=== PATIENT | female | born 1955 | race American Indian/Alaskan Native ===

== ENCOUNTER 2019-04-21 04:19 | Observation (INO) | payer MEDICAID ==
[2019-04-21] MEDS ORDERED: DUONEB *Not for PRN Use IH ONE ×2 (04:24→04:33)
[2019-04-21] MEDS ORDERED: XYLOCAINE 1% MPF 5 mL INFILTRATI ONE (06:53)
[2019-04-21] MEDS ORDERED: ROCEPHIN IM ONE (06:53)
[2019-04-21] MEDS ORDERED: SOLU-Medrol IM ONE (06:53)
--- NOTE | 2019-04-21 06:54 | Emergency Department Report ---
ED Shortness of Breath HPI - General Chief Complaint: Dyspnea/Respdistress Stated Complaint: BAKARI Time Seen by Provider: 04/21/19 06:48 Source: patient Mode of arrival: Ambulatory Limitations: No Limitations - History of Present Illness Initial Comments: Patient is a 63-year-old female that presents emergency room with asthmatic symptoms. She states her symptoms started 4 hours prior to arrival. Patient states she ran out of her inhalers and nebulizers. Patient states her symptoms improved with the respiratory treatment she received. Patient states her symptoms are worse with exertion. Patient denies fever. Patient denies chills. Patient given his cough and wheezing. Patient also complaining of bilateral rib pain. Patient states her rib pain is better with rest and worse with deep breath and coughing. MD Complaint: shortness of breath, cough, "asthma attack" -: Sudden Severity: severe Pain Scale: 10 Quality: aching Consistency: constant Improves With: rest, bronchodilators Worsens With: exertion Known History Of: asthma Context: recent URI, medication noncompliance Associated Symptoms: chest pain, cough, sputum production Treatments Prior to Arrival: none - Related Data Home Medications Medication Instructions Recorded Confirmed Last Taken Clonidine 1 mg PO DAILY 03/19/16 03/19/16 03/17/16 amLODIPine 5 mg PO DAILY 03/19/16 03/19/16 03/17/16 Allergies Allergy/AdvReac Type Severity Reaction Status Date / Time No Known Allergies Allergy Unverified 03/17/16 13:36 ED Review of Systems ROS: Stated complaint: BAKARI Other details as noted in HPI Constitutional: denies: chills, fever Eyes: denies: eye pain, eye discharge, vision change ENT: denies: ear pain, throat pain Respiratory: cough, shortness of breath, wheezing Cardiovascular: chest pain. denies: palpitations Endocrine: no symptoms reported Gastrointestinal: denies: abdominal pain, nausea, diarrhea Genitourinary: denies: urgency, dysuria, discharge Musculoskeletal: denies: back pain, joint swelling, arthralgia Skin: denies: rash, lesions Neurological: denies: headache, weakness, paresthesias Psychiatric: denies: anxiety, depression Hematological/Lymphatic: denies: easy bleeding, easy bruising ED Past Medical Hx - Past Medical History Previous Medical History?: Yes Hx Hypertension: Yes Hx Arthritis: Yes (both hands) Hx Asthma: Yes Additional medical history: Morbid Obesity - Surgical History Past Surgical History?: No - Family History Family history: no significant - Social History Smoking Status: Never Smoker Substance Use Type: None - Medications Home Medications: Home Medications Medication Instructions Recorded Confirmed Last Taken Type Clonidine 1 mg PO DAILY 03/19/16 03/19/16 03/17/16 History amLODIPine 5 mg PO DAILY 03/19/16 03/19/16 03/17/16 History ED Physical Exam - General Limitations: No Limitations General appearance: alert, in no apparent distress - Head Head exam: Present: atraumatic, normocephalic - Eye Eye exam: Present: normal appearance - ENT ENT exam: Present: mucous membranes moist - Neck Neck exam: Present: normal inspection - Respiratory Respiratory exam: Present: normal lung sounds bilaterally, rales, chest wall tenderness. Absent: respiratory distress, wheezes, rhonchi - Cardiovascular Cardiovascular Exam: Present: regular rate, normal rhythm. Absent: systolic murmur, diastolic murmur, rubs, gallop - GI/Abdominal GI/Abdominal exam: Present: soft, normal bowel sounds - Extremities Exam Extremities exam: Present: normal inspection - Back Exam Back exam: Present: normal inspection - Neurological Exam Neurological exam: Present: alert, oriented X3 - Psychiatric Psychiatric exam: Present: normal affect, normal mood - Skin Skin exam: Present: warm, dry, intact, normal color. Absent: rash ED Course Vital Signs 04/21/19 04:27 Temperature 97.9 F Pulse Rate 87 Respiratory 20 Rate Blood Pressure 183/118 O2 Sat by Pulse 100 Oximetry - Reevaluation(s) Reevaluation #1: Initial evaluation done. I walked the patient from one room to another the patient became severely dyspnea on exertion. It appears that this may be more than just an asthma exacerbation and bronchitis. More evaluation will be done. 04/21/19 06:50 Reevaluation #2: Patient's chest x-ray shows CHF and pulmonary congestion. Patient's BNP is ext remely elevated. Patient does not have a history of CHF. Patient will be admitted to the hospital service. I discussed all results with patient. Patient agrees with plan of care and admission. 04/21/19 08:38 - Consultations Consultation #1: Patient's primary care paged 04/21/19 09:00 Dusk case with primary care, Dr. Posey. Dr. Posey wants patient to be admitted to telemetry floor and Bridge orders placed. 04/21/19 09:35 ED Medical Decision Making - Lab Data Result diagrams: 04/21/19 07:12 04/21/19 07:12 - EKG Data -: EKG Interpreted by Me EKG shows normal: sinus rhythm, axis, intervals, QRS complexes, ST-T waves Rate: normal - Radiology Data Radiology results: report reviewed, image reviewed CHEST 2 VIEWS 0707 INDICATION / CLINICAL INFORMATION: sob. cough COMPARISON: None available. FINDINGS: SUPPORT DEVICES: None. HEART / MEDIASTINUM: No significant abnormality. LUNGS / PLEURA: A mildly congested appearance is noted. Evidence of COPD is seen. No definite areas of consolidation are seen. However, mild focal density in the right lateral costophrenic angle area on PA view possibly could represent minimal focal infiltrate. No pneumothorax. ADDITIONAL FINDINGS: No significant additional findings. IMPRESSION: Congestion - Medical Decision Making Patient is a 63-year-old female that presents emergency room with complaints of asthmatic sounds and shortness of breath. On initial exam patient's lungs were clear but had rails. Patient was also found to have significant dyspnea on exertion and upon ambulation. Patient workup initiated and found to have pulmonary congestion consistent with possibly CHF. Patient's BNP elevated, the rest of patient's labs unremarkable. Patient's EKG negative. Patient given Solu-Medrol and a breathing treatment for asthma exacerbation. Patient admitted to the hospital for further evaluation and treatment.. - Differential Diagnosis asthma. Wheezing. Cough. CHF. Critical Care Time: Yes Critical care attestation.: If time is entered above; I have spent that time in minutes in the direct care of this critically ill patient, excluding procedure time. Critical Care Time: 35 minutes ED Disposition Clinical Impression: New onset of congestive heart failure, SOB (shortness of breath), ROME (dyspnea on exertion) Chest pain Qualifiers: Chest pain type: unspecified Qualified Code(s): R07.9 - Chest pain, unspecified Asthma exacerbation Qualifiers: Asthma severity: mild Asthma persistence: intermittent Qualified Code(s): J45.21 - Mild intermittent asthma with (acute) exacerbation Disposition: OP ADMIT IP TO THIS HOSP Is pt being admited?: Yes Does the pt Need Aspirin: No Condition: Critical Referrals: IVONNE POSEY MD [Primary Care Provider] - 3-5 Days Time of Disposition: 08:40
--- NOTE | 2019-04-21 07:20 | XRay Report ---
CHEST 2 VIEWS 0707 INDICATION / CLINICAL INFORMATION: sob. cough COMPARISON: None available. FINDINGS: SUPPORT DEVICES: None. HEART / MEDIASTINUM: No significant abnormality. LUNGS / PLEURA: A mildly congested appearance is noted. Evidence of COPD is seen. No definite areas o f consolidation are seen. However, mild focal density in the right lateral costophrenic angle area on PA view possibly could represent minimal focal infiltrate. No pneumothorax. ADDITIONAL FINDINGS: No significant additional findings. IMPRESSION: Congestion Signer Name: Henry Amato MD Signed: 04/21/2019 7:16 AM Workstation Name: [id number]
[2019-04-21 07:28] LABS: Hematocrit 38.7 % (30.3-42.9); Hemoglobin 12.5 gm/dl (10.1-14.3); Mean Corpuscular HGB Conc 32 % (30-34); Mean Corpuscular Volume 86 fl (79-97); Platelet Count 175 K/mm3 (140-440); Red Cell Distribution Width 16.1 % (13.2-15.2)
[2019-04-21 07:40] LABS: Alanine Aminotransferase 10 units/L (7-56); Albumin 4.4 g/dL (3.9-5); BUN/Creatinine Ratio 19; Blood Urea Nitrogen 19 mg/dL (7-17); Calcium 9.5 mg/dL (8.4-10.2); Hemolysis Index 15
[2019-04-21 08:24] LABS: Creatine Kinase MB 2.9 ng/mL (0.0-4.0)
[2019-04-21] MEDS ORDERED: LASIX IV ONE (08:37)
[2019-04-21] MEDS ORDERED: APRESOLINE PO ONE ×2 (11:44→11:50)
[2019-04-21] MEDS ORDERED: APRESOLINE ONE (12:00)
--- NOTE | 2019-04-21 18:59 | History and Physical Report ---
History of Present Illness Date of examination: 04/21/19 Date of admission: 04/21/19 09:35 Chief complaint: Shortness of breath History of present illness: Patient is a 63-year-old lady has a history of hypertension, and asthma who presented emergency Department on account of progressively worsening shortness of breath. Onset was 4 hours prior to presentation. She had used her inhaler and nebulizer for asthma on multiple occasions at home without any improvement in symptoms. Shortness of breath is associated with cough and wheeze. Denies any fever. No chills. No chest pain. Patient denies any pedal edema. At the emergency department chest x-ray shows evidence CONGESTION. ProBNP was 1474. Glucose was 119. Initial set of cardiac enzymes were normal Admission was therefore requested. Past History Past Medical History: arthritis, hypertension Past Surgical History: Other (had colonoscopy with polypectomy in 2016) Social history: denies: smoking, alcohol abuse, prescription drug abuse Family history: hypertension Medications and Allergies Allergies Allergy/AdvReac Type Severity Reaction Status Date / Time No Known Allergies Allergy Unverified 03/17/16 13:36 Home Medications Medication Instructions Recorded Confirmed Last Taken Type Aspirin [Aspirin BABY CHEW TAB] 81 mg PO DAILY 04/21/19 04/21/19 Unknown History Lisinopril [Zestril] 20 mg PO DAILY 04/21/19 04/21/19 Unknown History amLODIPine [Norvasc] 10 mg PO DAILY 04/21/19 04/21/19 Unknown History Active Meds: Active Medications Amlodipine Besylate (Norvasc) 10 mg PO DAILY [facility] Aspirin (Baby Aspirin) 81 mg PO DAILY [facility] Carvedilol (Coreg) 25 mg PO BID [facility] Enoxaparin Sodium (Lovenox) 40 mg SUB-Q QDAY [facility] Lisinopril (Zestril) 40 mg PO QDAY [facility] Review of Systems Constitutional: no weight loss, no weight gain Eyes: bilateral: blurred vision, diplopia Ears, nose, mouth and throat: no ear pain, no ear discharge, no decreased hearing, no nose pain Cardiovascular: shortness of breath, no chest pain, no orthopnea, no palpita tions, no rapid/irregular heart beat, no edema Respiratory: cough, cough with sputum, shortness of breath, no excessive sputum, no hemoptysis Gastrointestinal: no abdominal pain, no nausea, no vomiting, no diarrhea, no constipation, no change in bowel habits, no hematemesis Genitourinary Female: no dyspareunia, no dysmenorrhea, no pelvic pain, no flank pain Menstruation: postmenopausal Musculoskeletal: no neck stiffness, no neck pain, no shooting arm pain, no arm numbness/tingling Integumentary: no rash, no pruritis, no redness, no sores Neurological: no head injury, no transient paralysis, no paralysis, no weakness, no parathesias, no numbness Exam - Constitutional Vitals: Temp Pulse Resp BP Pulse Ox 97.9 F 87 18 183/118 100 04/21/19 04:27 04/21/19 04:27 04/21/19 08:30 04/21/19 04:27 04/21/19 04:27 General appearance: Present: no acute distress, well-nourished - EENT Eyes: Present: PERRL ENT: hearing intact, clear oral mucosa - Neck Neck: Present: supple, normal ROM - Respiratory Respiratory effort: normal Respiratory: bilateral: rales - Cardiovascular Heart Sounds: Present: S1 & S2. Absent: rub, click - Extremities Extremities: pulses symmetrical, No edema Peripheral Pulses: within normal limits - Abdominal General gastrointestinal: Present: soft, non-tender, non-distended, normal bowel sounds - Integumentary Integumentary: Present: clear, warm, dry - Musculoskeletal Musculoskeletal: gait normal, strength equal bilaterally - Psychiatric Psychiatric: appropriate mood/affect, intact judgment & insight - Neurologic Neurologic: CNII-XII intact, moves all extremities Results - Labs CBC & Chem 7: 04/22/19 04:35 04/22/19 04:35 Labs: Abnormal lab results 04/21/19 04/21/19 04/21/19 Range/Units 07:12 07:12 07:12 RDW 16.1 H (13.2-15.2) % BUN 19 H (7-17) mg/dL Glucose 119 H (65-100) mg/dL NT-Pro-B Natriuret Pep 1474 H (0-900) pg/mL Assessment and Plan Patient is a 3-year-old lady has a history of hypertension, and asthma presented emergency Department on account of progressively worsening shortness of breath. Onset was 4 hours prior to presentation. She had used her inhaler and nebulizer for asthma on multiple occasions at home without any improvement in symptoms. Shortness of breath is associated with cough and wheeze. Denies any fever. No chills. No chest. Patient denies any pedal edema. At the emergency department chest x-ray shows evidence Pulm. CONGESTION. ProBNP was 1474. Glucose was 119. Initial set of cardiac enzymes were normal. Admission was therefore requested. - Acute heart failure Ventricular function eval pending ECHO Daily weights, strict input and output, This patient on IV Lasix, Acei, a beta cynthia, spironolactone, - Malignant hypertension Commence patient on Acei, betablocker, spironolactone - Hypoglycemia Objective A1c - Developed prophylaxis with Lovenox and GI with Pepcid - CODE STATUS patient is full code - Disposition discharged home when clinically stable - Time spent: 35 minutes
[2019-04-21] MEDS: LOVENOX SUB-Q SCH (21:19)
[2019-04-21] MEDS: NORVASC PO SCH (21:19)
[2019-04-21] MEDS: BABY ASPIRIN PO SCH (21:20)
[2019-04-21] MEDS: COREG PO SCH (21:20)
[2019-04-21] MEDS: ALDACTONE PO SCH (21:20)
[2019-04-21] MEDS: APRESOLINE PO SCH (21:20)
[2019-04-21] MEDS: LASIX PO SCH (21:22)
[2019-04-22] MEDS: DUONEB *Not for PRN Use IH SCH ×4 (02:08→20:39)
[2019-04-22 04:51] LABS: Basophils # (Auto) 0.1 K/mm3 (0.0-0.1); Basophils % (Auto) 0.5 % (0.0-1.8); Hematocrit 38.1 % (30.3-42.9); Hemoglobin 12.3 gm/dl (10.1-14.3); Lymphocytes # (Auto) 1.2 K/mm3 (1.2-5.4); Lymphocytes % (Auto) 10.6 % (13.4-35.0); Mean Corpuscular HGB Conc 32 % (30-34); Mean Corpuscular Volume 86 fl (79-97); Monocytes # (Auto) 0.6 K/mm3 (0.0-0.8); Monocytes % (Auto) 5.1 % (0.0-7.3); Platelet Count 174 K/mm3 (140-440); Red Blood Count 4.46 M/mm3 (3.65-5.03); Red Cell Distribution Width 16.1 % (13.2-15.2)
[2019-04-22 05:16] LABS: Alanine Aminotransferase 9 units/L (7-56); BUN/Creatinine Ratio 21; Blood Urea Nitrogen 21 mg/dL (7-17); Calcium 9.7 mg/dL (8.4-10.2); Hemolysis Index 9
--- NOTE | 2019-04-22 08:39 | Progress Note ---
Assessment and Plan Patient is a 3-year-old lady has a history of hypertension, and asthma presented emergency Department on account of progressively worsening shortness of breath. Onset was 4 hours prior to presentation. She had used her inhaler and nebulizer for asthma on multiple occasions at home without any improvement in symptoms. Shortness of breath is associated with cough and wheeze. Denies any fever. No chills. No chest. Patient denies any pedal edema. At the emergency department chest x-ray shows evidence Pulm. CONGESTION. ProBNP was 1474. Glucose was 119. Initial set of cardiac enzymes were normal. Admission was therefore requested. - Acute heart failure Ventricular function eval pending ECHO Daily weights, strict input and output, Continue with on IV Lasix, Acei, beta cynthia, spironolactone, - Malignant hypertension Commence patient on Acei, betablocker, spironolactone - Hypoglycemia A1c 5.9 - DVT prophylaxis with Lovenox and GI with Pepcid - CODE STATUS patient is full code - Disposition discharged home when clinically stable - Time spent: 30 minutes Subjective Date of service: 04/22/19 Principal diagnosis: Shortness of breath, Heart failure, malignant NTH Interval history: Shortness of breath improving Objective - Constitutional Vitals: Vital Signs - 12hr 04/21/19 04/21/19 04/21/19 21:12 21:14 23:00 Temperature 98.2 F Pulse Rate 72 61 Pulse Rate [ Bilateral] Respiratory 18 Rate Respiratory Rate [Bilateral ] Blood Pressure 155/93 Blood Pressure [Left] O2 Sat by Pulse 100 Oximetry 04/22/19 04/22/19 04/22/19 00:59 01:01 02:09 Temperature 97.4 F L Pulse Rate 64 Pulse Rate [ 65 Bilateral] Respiratory 18 Rate Respiratory 19 Rate [Bilateral ] Blood Pressure 143/87 Blood Pressure [Left] O2 Sat by Pulse 96 Oximetry 04/22/19 04:25 Temperature 97.7 F Pulse Rate 64 Pulse Rate [ Bilateral] Respiratory 18 Rate Respiratory Rate [Bilateral ] Blood Pressure Blood Pressure 140/97 [Left] O2 Sat by Pulse 96 Oximetry General appearance: Present: no acute distress, well-nourished - EENT Eyes: PERRL, EOM intact Ears: bilateral: normal - Neck Neck: supple, normal ROM - Respiratory Respiratory effort: normal Respiratory: bilateral: CTA - Cardiovascular Rhythm: regular Heart Sounds: Present: S1 & S2. Absent: gallop, rub Extremities: pulses intact, No edema, normal color, Full ROM - Gastrointestinal General gastrointestinal: Present: soft, non-tender, non-distended, normal bowel sounds - Integumentary Integumentary: clear, warm, dry - Musculoskeletal Musculoskeletal: 1, strength equal bilaterally - Neurologic Neurologic: moves all extremities - Psychiatric Psychiatric: memory intact, appropriate mood/affect, intact judgment & insight - Labs CBC & Chem 7: 04/22/19 04:35 04/22/19 04:35 Labs: Abnormal lab results 04/22/19 04/22/19 Range/Units 04:35 04:35 WBC 11.7 H (4.5-11.0) K/mm3 RDW 16.1 H (13.2-15.2) % Lymph % (Auto) 10.6 L (13.4-35.0) % Seg Neutrophils % 83.8 H (40.0-70.0) % Seg Neutrophils # 9.8 H (1.8-7.7) K/mm3 BUN 21 H (7-17) mg/dL Glucose 127 H (65-100) mg/dL
[2019-04-22] MEDS: ZESTRIL PO SCH (10:09)
[2019-04-22] MEDS: APRESOLINE PO SCH ×2 (10:10→21:25)
[2019-04-22] MEDS: ALDACTONE PO SCH (10:11)
[2019-04-22] MEDS: LASIX PO SCH (10:11)
[2019-04-22] MEDS: LOVENOX SUB-Q SCH (10:11)
[2019-04-22] MEDS: BABY ASPIRIN PO SCH (10:12)
[2019-04-22] MEDS: NORVASC PO SCH (10:12)
[2019-04-22] MEDS: COREG PO SCH ×2 (10:21→21:25)
--- NOTE | 2019-04-22 11:11 | Consultation ---
History of Present Illness Consult date: 04/22/19 Requesting physician: IVONNE POSEY Consult reason: congestive heart failure History of present illness: Ms. Romero is a 63 y/o female with a history of asthma and hypertension who presented to [facility] with shortness of breath that lasted several hours, despite several breathing treatments at home. She was last seen in our office by Dr. Chapman in 2014. The SOB was associated with a cough and wheezing, but she denies any accompanying chest pain and edema. A chest x-ray was suggestive of congestive changes and her pro-BNP was elevated to 1474. On examination, she is in no acute distress and reports SOB is improved after a breathing treatment. Past History Past Medical History: arthritis, hypertension, other (asthma) Past Surgical History: Other (had colonoscopy with polypectomy in 2016) Social history: denies: smoking, alcohol abuse, prescription drug abuse Family history: hypertension Medications and Allergies Allergies Allergy/AdvReac Type Severity Reaction Status Date / Time No Known Allergies Allergy Unverified 03/17/16 13:36 Home Medications Medication Instructions Recorded Confirmed Last Taken Type Aspirin [Aspirin BABY CHEW TAB] 81 mg PO DAILY 04/21/19 04/21/19 Unknown History Lisinopril [Zestril] 20 mg PO DAILY 04/21/19 04/21/19 Unknown History amLODIPine [Norvasc] 10 mg PO DAILY 04/21/19 04/21/19 Unknown History Active Meds: Active Medications Albuterol/Ipratropium (Duoneb *Not For Prn Use*) 1 ampul IH Q6HRT [facility] Last Admin: 04/22/19 09:33 Dose: 1 ampul Documented by: Amlodipine Besylate (Norvasc) 10 mg PO DAILY [facility] Last Admin: 04/22/19 10:12 Dose: 10 mg Documented by: Aspirin (Baby Aspirin) 81 mg PO DAILY [facility] Last Admin: 04/22/19 10:12 Dose: 81 mg Documented by: Carvedilol (Coreg) 25 mg PO BID [facility] Last Admin: 04/22/19 10:21 Dose: 25 mg Documented by: Enoxaparin Sodium (Lovenox) 40 mg SUB-Q QDAY [facility] Last Admin: 04/22/19 10:11 Dose: 40 mg Documented by: Furosemide (Lasix) 40 mg PO QDAY [facility] Last Admin: 04/22/19 10:11 Dose: 40 mg Documented by: Hydralazine HCl (Apresoline) 25 mg PO BID [facility] Last Admin: 04/22/19 10:10 Dose: 25 mg Documented by: Lisinopril (Zestril) 40 mg PO QDAY [facility] Last Admin: 04/22/19 10:09 Dose: 40 mg Documented by: Spironolactone (Aldactone) 50 mg PO QDAY [facility] Last Admin: 04/22/19 10:11 Dose: 50 mg Documented by: Review of Systems Respiratory: shortness of breath Physical Examination Vital Signs Temp Pulse Resp BP Pulse Ox 97.9 F 87 20 183/118 100 04/21/19 04:27 04/21/19 04:27 04/21/19 04:27 04/21/19 04:27 04/21/19 04:27 General appearance: no acute distress HEENT: Positive: PERRL Neck: Positive: neck supple Cardiac: Positive: Reg Rate and Rhythm Lungs: Positive: Normal Exam Neuro: Positive: Grossly Intact Abdomen: Positive: Unremarkable Female genitourinary: deferred Skin: Positive: Clear Musculoskeletal: No Pain Extremities: Present: normal Results 04/22/19 04:35 04/22/19 04:35 Cardiac Enzymes 04/22/19 Range/Units 04:35 AST 12 (5-40) units/L CBC 04/22/19 Range/Units 04:35 WBC 11.7 H (4.5-11.0) K/mm3 RBC 4.46 (3.65-5.03) M/mm3 Hgb 12.3 (10.1-14.3) gm/dl Hct 38.1 (30.3-42.9) % Plt Count 174 (140-440) K/mm3 Lymph # 1.2 (1.2-5.4) K/mm3 [place] # 0.6 (0.0-0.8) K/mm3 Eos # 0.0 (0.0-0.4) K/mm3 Baso # 0.1 (0.0-0.1) K/mm3 Comprehensive Metabolic Panel 04/22/19 Range/Units 04:35 Sodium 143 (137-145) mmol/L Potassium 4.0 (3.6-5.0) mmol/L Chloride 101.8 (98-107) mmol/L Carbon Dioxide 30 (22-30) mmol/L BUN 21 H (7-17) mg/dL Creatinine 1.0 (0.7-1.2) mg/dL Glucose 127 H (65-100) mg/dL Calcium 9.7 (8.4-10.2) mg/dL AST 12 (5-40) units/L ALT 9 (7-56) units/L Alkaline Phosphatase 61 (35-129) units/L Total Protein 7.1 (6.3-8.2) g/dL Albumin 4.0 (3.9-5) g/dL - Imaging and Cardiology Echo: pending - EKG Interpretation EKG: sinus rhythm EKG interpretations - Telemetry EKG Rhythm: Sinus Rhythm Assessment and Plan Ms. Romero is a 63 y/o female admitted with SOB. An echocardiogram is pending. HR and blood pressure stable at this time. Continue current management. Further recommendations pending hospital course. The patient has been seen in conjunction with Dr. Martines, who agrees with the assessment and plan. - Patient Problems (1) Asthma exacerbation Current Visit: Yes Status: Acute Qualifiers: Asthma severity: mild Asthma persistence: intermittent Qualified Code(s): J45.21 - Mild intermittent asthma with (acute) exacerbation (2) ROME (dyspnea on exertion) Current Visit: Yes Status: Acute (3) New onset of congestive heart failure Current Visit: Yes Status: Suspected
[2019-04-23 04:59] LABS: Basophils % (Auto) 0.6 % (0.0-1.8); Eosinophils # (Auto) 0.1 K/mm3 (0.0-0.4); Hematocrit 38.3 % (30.3-42.9); Hemoglobin 12.4 gm/dl (10.1-14.3); Lymphocytes # (Auto) 2.9 K/mm3 (1.2-5.4); Lymphocytes % (Auto) 38.6 % (13.4-35.0); Mean Corpuscular HGB Conc 32 % (30-34); Mean Corpuscular Volume 87 fl (79-97); Monocytes # (Auto) 0.5 K/mm3 (0.0-0.8); Monocytes % (Auto) 6.2 % (0.0-7.3); Platelet Count 169 K/mm3 (140-440); Red Blood Count 4.41 M/mm3 (3.65-5.03); Red Cell Distribution Width 16.2 % (13.2-15.2)
[2019-04-23 05:23] LABS: Alanine Aminotransferase 8 units/L (7-56); Albumin 3.7 g/dL (3.9-5); BUN/Creatinine Ratio 25; Blood Urea Nitrogen 27 mg/dL (7-17); Calcium 9.4 mg/dL (8.4-10.2); Hemolysis Index 5
[2019-04-23] MEDS: DUONEB *Not for PRN Use IH SCH ×4 (08:37→15:14)
[2019-04-23] MEDS: ALDACTONE PO SCH (09:11)
[2019-04-23] MEDS: COREG PO SCH (09:12)
[2019-04-23] MEDS: LASIX PO SCH (09:12)
[2019-04-23] MEDS: BABY ASPIRIN PO SCH (09:12)
[2019-04-23] MEDS: LOVENOX SUB-Q SCH (09:13)
--- NOTE | 2019-04-23 09:57 | Progress Note ---
Assessment and Plan The patient is stable from a cardiac standpoint. Will decrease Coreg to 12.5 mg BID. Continue GDMT for HFrEF -- lisinopril, Coreg, spironolactone and Lasix. The patient has been seen in conjunction with Dr. Martines, who agrees with the assessment and plan. - Patient Problems (1) Acute HFrEF (heart failure with reduced ejection fraction) Current Visit: Yes Status: Acute (2) Asthma exacerbation Current Visit: Yes Status: Acute Qualifiers: Asthma severity: mild Asthma persistence: intermittent Qualified Code(s): J45.21 - Mild intermittent asthma with (acute) exacerbation (3) ROME (dyspnea on exertion) Current Visit: Yes Status: Acute Subjective Date of service: 04/23/19 Principal diagnosis: Shortness of breath, Heart failure, malignant NTH Interval history: Patient is sitting up in bed in [facility]. She has no cardiac complaints. SB in 50s on telemetry. Echo reviewed - EF 30 to 35%, mild LVH, [id number]-[id number]-waqelm LA dilation, [id number] MR, mild TR, RVSP 36. Objective Last Vital Signs Temp 98.2 F 04/23/19 07:27 Pulse 57 L 04/23/19 09:26 Resp 18 04/23/19 09:26 BP 115/68 04/23/19 09:12 Pulse Ox 100 04/23/19 07:27 - Physical Examination General: No Apparent Distress HEENT: Positive: PERRL Neck: Positive: neck supple Cardiac: Positive: Regular Rhythm Lungs: Positive: Normal Exam Neuro: Positive: Grossly Intact Abdomen: Positive: Unremarkable /Rectal: Other (deferred) Skin: Positive: Clear Musculoskeletal: No Pain Extremities: Present: normal - Labs and Meds Cardiac Enzymes 04/23/19 Range/Units 04:30 AST 11 (5-40) units/L CBC 04/23/19 Range/Units 04:30 WBC 7.5 (4.5-11.0) K/mm3 RBC 4.41 (3.65-5.03) M/mm3 Hgb 12.4 (10.1-14.3) gm/dl Hct 38.3 (30.3-42.9) % Plt Count 169 (140-440) K/mm3 Lymph # 2.9 (1.2-5.4) K/mm3 [place] # 0.5 (0.0-0.8) K/mm3 Eos # 0.1 (0.0-0.4) K/mm3 Baso # 0.0 (0.0-0.1) K/mm3 Comprehensive Metabolic Panel 04/23/19 Range/Units 04:30 Sodium 142 (137-145) mmol/L Potassium 3.8 (3.6-5.0) mmol/L Chloride 100.8 (98-107) mmol/L Carbon Dioxide 31 H (22-30) mmol/L BUN 27 H (7-17) mg/dL Creatinine 1.1 (0.7-1.2) mg/dL Glucose 98 (65-100) mg/dL Calcium 9.4 (8.4-10.2) mg/dL AST 11 (5-40) units/L ALT 8 (7-56) units/L Alkaline Phosphatase 62 (35-129) units/L Total Protein 6.6 (6.3-8.2) g/dL Albumin 3.7 L (3.9-5) g/dL - Imaging and Cardiology Echo: pending, report reviewed (04/22/19: EF 30 to 35%, mild LVH, [id number]-[id number] LA dilation, [id number]-hb-waffoqrx MR, mild TR, RVSP 36. ) - Telemetry EKG Rhythm: Sinus Bradycardia
[2019-04-23] MEDS: ZESTRIL PO SCH (10:00)
[2019-04-23] MEDS ORDERED: COREG PO SCH (10:00)
[2019-04-23] MEDS: APRESOLINE PO SCH (10:00)
[2019-04-23] MEDS: NORVASC PO SCH (12:50)
[2019-04-23 13:05] VITALS: BP 115/66
--- NOTE | 2019-04-23 13:28 | Discharge Summary ---
Providers - Providers Date of Admission: 04/21/19 09:35 Date of discharge: 04/23/19 Attending physician: IVONNE POSEY 04/21/19 18:43 Consult to Physician [CONS] Stat Comment: Consulting Provider: JB EISENBERG Physician Instructions: Reason For Exam: Heart failure Primary care physician: IVONNE POSEY Hospitalization Reason for admission: shortness of breath, HFrEF Condition: Critical Pertinent studies: Chest x-rayreviewed congestion. Echocardiogram with ejection fraction of 30-35% Procedures: none Hospital course: Patient is a 63-year-old lady has a history of hypertension, and asthma who presented emergency Department on account of progressively worsening shortness of breath. Onset was 4 hours prior to presentation. She had used her inhaler and nebulizer for asthma on multiple occasions at home without any improvement in symptoms. Shortness of breath is associated with cough and wheeze. Denies any fever. No chills. No chest pain. Patient denies any pedal edema. At the emergency department chest x-ray shows evidence CONGESTION. ProBNP was 1474. Glucose was 119. Initial set of cardiac enzymes were normal Admission was therefore requested. Home is on IV Lasix, before meals, beta blockers, spironolactone, strict input output, daily weights and strict low-sodium diet. Echocardiogram showed ejection fraction of 30-35% with systolic dysfunction. Shortness of breath improved. Patient able to ambulate on the floor. Patient discharged primary care physician as well as weather forcaster in 5 days and more week respectively. Discharge instructions explained and patient expressed understanding. Disposition: DC- TO HOME OR SELFCARE Time spent for discharge: 40 mins - Discharge Diagnoses (1) Acute HFrEF (heart failure with reduced ejection fraction) Status: Acute (2) Asthma exacerbation Status: Acute Qualifiers: Asthma severity: mild Asthma persistence: intermittent Qualified Code(s): J45.21 - Mild intermittent asthma with (acute) exacerbation (3) ROME (dyspnea on exertion) Status: Acute (4) SOB (shortness of breath) Status: Acute Core Measure Documentation - Palliative Care Palliative Care/ Comfort Measures: Not Applicable - Core Measures Any of the following diagnoses?: heart failure - Heart Failure Discharge Requirements LISA/ARB for LVSD if EF <40%: Yes Beta cynthia at discharge: Yes Exam - Physical Exam Narrative exam: Constitutional: Well-nourished well-developed. In no distress Head: Normocephalic atraumatic Eyes: Pupils are equal round and reactive to light Nose: No enlarged turbinates, no septal deviation. Mouth: Moist mucous membranes. Neck: Supple no thyromegaly. No bruit. No JVD Heart: Regular rate and rhythm, S1-S2 normal. No rubs murmurs or gallop Lungs: Clear to auscultation bilaterally. no rales or rhonchi Abdomen: Soft, nontender. Bowel sound are present. Extremities: No edema, no cyanosis, no clubbing. Neuro: Alert oriented Oriented x3. No focal sensory or motor deficit. Skin: No rashes or hyperpigmented spots Musculoskeletal system: No joint pain or swelling Hematological: No petechia or subcutanous hemorrhages. Immunological: No multiple septic spots on the skin Lymphatic: No generalized lymphadenopathy Psychiatry: Euthymic. Calm. - Constitutional Vitals: Temp Pulse Resp BP Pulse Ox 98.9 F 59 L 18 115/66 93 04/23/19 11:35 04/23/19 13:04 04/23/19 11:35 04/23/19 13:04 04/23/19 11:35 Plan Activity: fall precautions Weight Bearing Status: Non-Weight Bearing Diet: low fat, low salt Follow up with: IVONNE POSEY MD [Primary Care Provider] - 3-5 Days Prescriptions: Spironolactone [Aldactone] 50 mg PO QDAY #30 tablet Aspirin [Aspirin BABY CHEW TAB] 81 mg PO DAILY #30 tab.chew Carvedilol [Coreg] 12.5 mg PO BID #60 tablet Ipratropium/Albuterol Sulfate [DUONEB *Not for PRN Use*] 1 ampul IH TIDRT #100 ampul.neb Furosemide [Lasix TAB] 40 mg PO QDAY #30 tablet amLODIPine [Norvasc] 5 mg PO DAILY #30 tablet Lisinopril [Zestril TAB] 40 mg PO QDAY #30 tablet
== END 2019-04-23 15:52 | disposition home or self-care (01) ==
LOC: ED 04:19 → 4A 09:35
PROVIDERS: ADMIT Family Medicine; ATTEND Family Medicine
DX: I11.0 Hypertensive heart disease with heart failure (principal); I50.9 Heart failure, unspecified; E16.2 Hypoglycemia, unspecified
CPT/HCPCS: 36415; 71046; 80053; 82550; 82553; 83036; 83735; 83880; 84100; 84484; 85025; 85027; 93005; 93010; 93306; 94640; 96372; 99291; G0378; J0696; J1650; J1940; J2930

== ENCOUNTER 2019-08-11 06:44 | Day surgery (SDC) | payer MEDICAID ==
[2019-08-11 07:38] LABS: Basophils # (Auto) 0.1 K/mm3 (0.0-0.1); Eosinophils # (Auto) 0.1 K/mm3 (0.0-0.4); Eosinophils % (Auto) 1.7 % (0.0-4.3); Hematocrit 35.6 % (30.3-42.9); Hemoglobin 11.6 gm/dl (10.1-14.3); Lymphocytes # (Auto) 1.5 K/mm3 (1.2-5.4); Lymphocytes % (Auto) 28.6 % (13.4-35.0); Mean Corpuscular HGB Conc 33 % (30-34); Mean Corpuscular Volume 86 fl (79-97); Monocytes # (Auto) 0.4 K/mm3 (0.0-0.8); Platelet Count 191 K/mm3 (140-440); Red Blood Count 4.14 M/mm3 (3.65-5.03); Red Cell Distribution Width 16.2 % (13.2-15.2)
[2019-08-11 07:48] LABS: INR 0.95 (0.87-1.13)
[2019-08-11 07:49] LABS: BUN/Creatinine Ratio 19; Blood Urea Nitrogen 15 mg/dL (7-17); Calcium 8.7 mg/dL (8.4-10.2); Hemolysis Index 15
[2019-08-11] MEDS: SODIUM CHLORIDE 0.9% 500 ML 500 ML IV SCH ×2 (07:53→09:49)
[2019-08-11] MEDS ORDERED: ASPIRIN EC 325 MG TAB PO SCH (08:00)
[2019-08-11] MEDS ORDERED: HEPARIN/NS 5000 UNIT/500ML 1,000 ML IR ONE (08:35)
--- NOTE | 2019-08-11 08:45 | History and Physical Report ---
History of Present Illness Date of examination: 08/11/19 Date of admission: [id number] Chief complaint: no current complaints History of present illness: Tahmina Romero is a 64 YO female with known cgvewoby-tm-siarmt cardiomyopathy. Stress test is abnormal. She presents today for scheduled elective LHC. Past History Past Medical History: hypertension, hyperlipidemia, other (CMP) Medications and Allergies Allergies Allergy/AdvReac Type Severity Reaction Status Date / Time No Known Allergies Allergy Unverified 03/17/16 13:36 Home Medications Medication Instructions Recorded Confirmed Last Taken Type Aspirin [Aspirin BABY CHEW TAB] 81 mg PO DAILY #30 tab.chew 04/23/19 08/11/19 08/10/19 Rx Ipratropium/Albuterol Sulfate 1 ampul IH TIDRT #100 ampul.neb 04/23/19 08/11/19 Unknown Rx [DUONEB *Not for PRN Use*] Losartan/Hydrochlorothiazide 1 each PO DAILY 08/11/19 08/11/19 08/10/19 History [Losartan-Hctz 50-12.5 mg Tab] amLODIPine 10 mg PO DAILY 08/11/19 08/11/19 08/10/19 History lisinopriL [Zestril TAB] 10 mg PO QDAY 08/11/19 08/11/19 08/10/19 History Active Meds: Active Medications Aspirin (Ecotrin) 325 mg PO ONCE SAMANTHA Stop: 08/11/19 15:00 Last Admin: 08/11/19 07:15 Dose: 325 mg Documented by: Sodium Chloride (Nacl 0.9% 500 Ml) 500 mls @ 50 mls/hr IV DIRECT SAMANTHA Stop: 08/11/19 17:59 Last Admin: 08/11/19 07:53 Dose: 50 mls/hr Documented by: Review of Systems All systems: negative (no current complaints) Physical Examination Vital Signs Temp Pulse Resp BP Pulse Ox 98.4 F 85 20 153/93 99 08/11/19 07:30 08/11/19 07:30 08/11/19 07:30 08/11/19 07:30 08/11/19 07:30 General appearance: no acute distress HEENT: Positive: PERRL, Normocephaly, Mucus Membranes Moist Neck: Positive: neck supple, trachea midline Cardiac: Positive: Reg Rate and Rhythm, S1/S2 Lungs: Positive: Decreased Breath Sounds Neuro: Positive: Grossly Intact Abdomen: Negative: Tender Skin: Negative: Rash Musculoskeletal: No Pain Extremities: Absent: edema Results 08/11/19 07:30 08/11/19 07:20 Coagulation 08/11/19 Range/Units 07:20 PT 12.8 (12.2-14.9) Sec. INR 0.95 (0.87-1.13) APTT 34.0 (24.2-36.6) Sec. CBC 08/11/19 Range/Units 07:30 WBC 5.1 (4.5-11.0) K/mm3 RBC 4.14 (3.65-5.03) M/mm3 Hgb 11.6 (10.1-14.3) gm/dl Hct 35.6 (30.3-42.9) % Plt Count 191 (140-440) K/mm3 Lymph # 1.5 (1.2-5.4) K/mm3 Harrison # 0.4 (0.0-0.8) K/mm3 Eos # 0.1 (0.0-0.4) K/mm3 Baso # 0.1 (0.0-0.1) K/mm3 Comprehensive Metabolic Panel 08/11/19 Range/Units 07:20 Sodium 144 (137-145) mmol/L Potassium 4.4 (3.6-5.0) mmol/L Chloride 107.5 H (98-107) mmol/L Carbon Dioxide 23 (22-30) mmol/L BUN 15 (7-17) mg/dL Creatinine 0.8 (0.7-1.2) mg/dL Glucose 113 H (65-100) mg/dL Calcium 8.7 (8.4-10.2) mg/dL Assessment and Plan Proceed with scheduled elective C. The patient has been seen in conjunction with Dr. Maria Kinsey who agrees with the assessment and plan of care. - Patient Problems (1) Cardiomyopathy Current Visit: Yes Status: Chronic (2) HTN (hypertension) Current Visit: Yes Status: Chronic (3) Hyperlipidemia Current Visit: Yes Status: Chronic
[2019-08-11] MEDS: fentaNYL 100 MCG/2 ML INJ ONE ×3 (09:49→10:25)
[2019-08-11] MEDS: MIDAZOLAM 2 MG/2 ML INJ ONE ×3 (09:49→10:25)
[2019-08-11] MEDS: LIDOCAINE (2%) 20 MG/1 ML VIAL 20 ML MDV INFILTRATI ONE ×2 (09:49→10:05)
[2019-08-11] MEDS: VERAPAMIL 5 MG/2 ML INJ ONE ×2 (09:50→10:07)
[2019-08-11] MEDS: NITROGLYCERIN SYRINGE 3 ML ONE ×2 (09:50→10:07)
[2019-08-11] MEDS: HEPARIN 10,000 UNITS/10 ML VIAL ONE ×2 (09:50→10:07)
[2019-08-11] MEDS ORDERED: LIDOCAINE (1%) 10 MG/1 ML VIAL 20 ML MDV ONE (10:16)
[2019-08-11] MEDS ORDERED: LIDOCAINE 1%/EPINEPHRINE 1:100,000 VIAL (20 ML) INFILTRATI ONE (10:17)
[2019-08-11] MEDS: hydrALAZINE 20 MG/1 ML INJ ONE ×2 (10:33→10:40)
--- NOTE | 2019-08-11 12:09 | Cardiac Catherization Report ---
REFERRING PHYSICIAN: Madi Kinsey MD INDICATION FOR PROCEDURE: The patient is a pleasant 64-year-old -[place] female with abnormal stress test, cardiomyopathy, referred for left heart catheterization. She has a history of hypertension, hypertensive heart disease, on four blood pressure medicines. Risks, benefits, alternatives discussed prior to obtaining informed consent. PROCEDURE IN DETAIL: The patient was brought to catheterization lab in a postoperative state, prepped and draped in sterile fashion. Marcio's test in right hand was normal. A 2 mL of 2% lidocaine used to anesthetize the right wrist. A standard 6-Montenegrin hydrophilic sheath used to cannulate the right radial via modified Seldinger technique. All exchanges performed to exchange a J-tip guidewire. She had significant tortuosity in her right subclavian, multiple curly cues; selective third order right subclavian angiography was performed. No dissection, just severe tortuosity likely due to longstanding uncontrolled hypertension. We changed to a groin approach, 6-Montenegrin sheath placed in the right common femoral artery via modified Seldinger technique, after fluoroscopic confirmation of location of femoral head. Next, a JL4 catheter was used to engage the left main. No dampening or ventricularization. Cineangiography performed in multiple projections. JR4 catheter used to cross the aortic valve under fluoroscopic guidance. Left ventriculography in 30 LAMBERT and 30 STATELESS projection via hand injections. Catheter flushed. Manual pullback performed with continuous pressure monitoring. Catheter was used to engage the right coronary. No dampening or ventricularization. Cineangiography performed in all projections. Given the patient's uncontrolled hypertension, on four blood pressure medicines, bilateral selective renal angiography was performed. Next, catheter was removed from the body. Sheath removed. Manual pressure used to achieve hemostasis. DATA: The patient remained in normal sinus rhythm throughout the procedure. Aortic pressure is 170/90, LV pressure is 170, LVEDP of 25 mmHg. Left ventriculography reveals moderate global left ventricular hypokinesis, estimated ejection fraction of 35-40%. No evidence of aortic stenosis. CORONARY ANATOMY: This is a codominant system. Right coronary is a large vessel, courses AV groove, distally bifurcates into posterior and posterolateral branch. No discrete stenosis noted. Left main is a large vessel, no significant disease, bifurcates left anterior descending and left circumflex. Left circumflex is a large vessel, courses AV groove, gives off an OM trunk, small left PDA, no significant disease. LAD is a large vessel, courses anterior intergroove, wraps around the apex, no significant disease in LAD or diagonal system. The right subclavian is tortuous, but patent. No significant stenosis noted. No dissection. Bilateral renal arteries are widely patent. I directly supervised the administration of moderate sedation with fentanyl and Versed from 10:00 a.m. to 10:35 a.m. There were no immediate complications. CONCLUSIONS: 1. No angiographic evidence of significant epicardial coronary disease in this codominant system. 2. Moderate to severe global left ventricular hypokinesis, estimated ejection fraction of 35-40%. 3. Mildly elevated LVP. 4. Hypertension. 5. Patent bilateral renal arteries. 6. Patent right subclavian. These findings are consistent with uncontrolled hypertension and hypertensive heart disease. This stress the importance of compliance with these medications. We will check a MUGA scan for true estimation of cardiac function as the echocardiogram and catheterization were right around 35%. She is not on a beta cynthia due to baseline sinus bradycardia. At this point, we will go ahead and double lisinopril therapy, consider adding Imdur, low-salt diet and exercise modification discussed. Followup with me in the office. Standard groin and radial care. The patient is clinically stable at this point. JOB# [id number] SBConi/NTS
--- NOTE | 2019-08-11 13:02 | Short Stay Summary ---
Short Stay Documentation Date of service: 08/11/19 - History H&P: obtained from office Past Medical History: hypertension, hyperlipidemia, other (CMP) - Allergies and Medications Current Medications: Allergies No Known Allergies Allergy (Unverified 03/17/16 13:36) Home Medications Medication Instructions Recorded Confirmed Last Taken Type Aspirin [Aspirin BABY CHEW TAB] 81 mg PO DAILY #30 tab.chew 04/23/19 08/11/19 08/10/19 Rx Ipratropium/Albuterol Sulfate 1 ampul IH TIDRT #100 ampul.neb 04/23/19 08/11/19 Unknown Rx [DUONEB *Not for PRN Use*] Losartan/Hydrochlorothiazide 1 each PO DAILY 08/11/19 08/11/19 08/10/19 History [Losartan-Hctz 50-12.5 mg Tab] amLODIPine 10 mg PO DAILY 08/11/19 08/11/19 08/10/19 History lisinopriL [Zestril TAB] 10 mg PO QDAY 08/11/19 08/11/19 08/10/19 History Active Medications Aspirin (Ecotrin) 325 mg PO ONCE SAMANTHA Stop: 08/11/19 15:00 Last Admin: 08/11/19 07:15 Dose: 325 mg Documented by: Sodium Chloride (Nacl 0.9% 500 Ml) 500 mls @ 50 mls/hr IV DIRECT SAMANTHA Stop: 08/11/19 17:59 Last Admin: 08/11/19 09:49 Dose: 50 mls/hr Documented by: - Brief post op/procedure progress note Date of procedure: 08/11/19 Pre-op diagnosis: CMP Post-op diagnosis: same Procedure: [facility] - see dictated cath report Anesthesia: local Estimated blood loss: none Condition: stable - Disposition Condition at discharge: Good Disposition: DC-01 TO HOME OR SELFCARE - Discharge Diagnoses (1) Nonischemic cardiomyopathy Status: Chronic (2) HTN (hypertension) Status: Chronic (3) Hyperlipidemia Status: Chronic Short Stay Discharge Plan Activity: advance as tolerated Diet: low fat, low cholesterol, low salt Wound: open to air, keep clean and dry, per your surgeon's advice Follow up with: IVONNE POSEY MD [Primary Care Provider] - 7 Days CAYDEN YANEZ MD [Staff Physician] - 7 Days Forms: CardCath PCI D/C Instructions Prescriptions: lisinopriL [Zestril TAB] 20 mg PO QDAY #30 tablet
[2019-08-11 14:59] VITALS: BP 163/93
== END 2019-08-11 14:45 | disposition home or self-care (01) ==
LOC: CATHLABREC 06:44
PROVIDERS: ATTEND Internal Medicine
DX: R94.39 Abnormal result of other cardiovascular function study (principal); I11.0 Hypertensive heart disease with heart failure; I42.8 Other cardiomyopathies; I50.21 Acute systolic (congestive) heart failure; E78.5 Hyperlipidemia, unspecified; J45.909 Unspecified asthma, uncomplicated; G47.30 Sleep apnea, unspecified; M19.90 Unspecified osteoarthritis, unspecified site; E05.90 Thyrotoxicosis, unspecified without thyrotoxic crisis or storm; F32.9 Major depressive disorder, single episode, unspecified; Z79.899 Other long term (current) drug therapy; Z79.82 Long term (current) use of aspirin; Z98.890 Other specified postprocedural states
CPT/HCPCS: 36252; 36415; 80048; 85025; 85610; 85730; 93005; 93010; 93458; 99156; 99157; C1894; J0360; J1644; J2250; J3010; J7040; Q9967